=== PATIENT | male | born 1965 | race Two or more races ===

== ENCOUNTER 2018-04-03 19:25 | Emergency (ER) | payer OTHER, BC ==
[2018-04-03] MEDS: ACETAMINOPHEN 325 MG TAB PO (21:52)
[2018-04-03] MEDS: DIPHTH/TET/ACEL PERTUSS (ADULT) 0.5 ML VIAL IM* (23:17)
== END 2018-04-04 00:17 | disposition home or self-care (01) ==
LOC: FTE 04-04 00:17
DX: S01.01XA Laceration without foreign body of scalp, initial encounter (principal); W22.8XXA Striking against or struck by other objects, initial encounter; Y92.9 Unspecified place or not applicable
CPT/HCPCS: 70450; 90471; 90715; 99284-25